=== PATIENT | female | born 1965 | race Caucasian/White ===

== ENCOUNTER 2016-10-08 09:31 | Outpatient (CLI) | payer OTHER | END 2016-10-08 18:09 | disposition home or self-care (01) | LOC: SMA 09:31 | PROVIDERS: ATTEND Family Medicine | DX: Z12.31 Encounter for screening mammogram for malignant neoplasm of breast (principal) | CPT/HCPCS: 77067; G0202 ==

== ENCOUNTER 2018-04-07 10:30 | Outpatient (CLI) | payer OTHER | END 2018-04-07 20:48 | disposition home or self-care (01) | LOC: SMA 10:30 | PROVIDERS: ATTEND Family Medicine | DX: Z12.31 Encounter for screening mammogram for malignant neoplasm of breast (principal) | CPT/HCPCS: 77067 ==